=== PATIENT | female | born 1995 | race African-American/Black ===

== ENCOUNTER 2017-07-07 00:25 | Emergency (ER) | payer OTHER ==
[2017-07-07 00:42] VITALS: BP 111/82
[2017-07-07] MEDS ORDERED: predniSONE TAB* 20 MG PO ONE (01:25)
--- NOTE | 2017-07-07 04:37 | ED ---
James Burris Angela, scribed for Juan Zimmerman MD on 07/07/17 at 0117 . Allergic Reaction/Systemic - HPI Summary HPI Summary: This pt is a 21 y/o female presenting to [facility] c/o hives that began 07/06/17 at 22:00. Pt reports she broke out in hives and had difficulty breathing at approx 22:00 last night. She notes that this is the 7th night in a row that this has happened. Pt reports last night she left work at 18:30 and got home at 20:00. She went to bed and 2 hours later she broke out in hives. She took Benadryl with relief of hives, her last dose was at 22:30 on 07/06/17. Pt did not shower prior to going to bed. Denies using new soaps or detergents. 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 She has been working for 3 weeks at [employer]. PMHx: asthma. Pt has an epi pen for peanut allergy. Her PCP is Dr. Oh. - History of Current Complaint Chief Complaint: EDAllergicReaction Time Seen by Provider: 07/07/17 01:11 Hx Obtained From: Patient Hx Last Menstrual Period: 2 WEEKS AGO Onset/Duration: Sudden Onset, Started hours ago, Resolved Timing: Lasting Hours Severity Currently: None Pain Intensity: 0 Pain Scale Used: 0-10 Numeric Location: Diffuse Character: Hives Aggravating Factor(s): Nothing Alleviating Factor(s): OTC Meds - Benadryl Associated Signs And Symptoms: Positive: Difficulty Breathing, Rash. Negative: Throat Tightening - Allergies/Home Medications Allergies/Adverse Reactions: Allergies Allergy/AdvReac Type Severity Reaction Status Date / Time nut - unspecified Allergy Hives Verified 07/07/17 01:09 SHRIMP Allergy Severe Anaphylatic Uncoded 07/07/17 01:09 Shock PMH/Surg Hx/FS Hx/Imm Hx Respiratory History: Reports: Hx Asthma - EXERCISE-INDUCED Neurological History: Denies: Hx Seizures Infectious Disease History: No Infectious Disease History: Denies: Traveled Outside the [place] in Last 30 Days - Family History Known Family History: Positive: Hypertension, Diabetes - Social History Alcohol Use: None Substance Use Type: Reports: None Smoking Status (MU): Never Smoked Tobacco Review of Systems Negative: Fever Eyes: Negative ENT: Negative Positive: Shortness Of Breath - now resolved Genitourinary: Negative Positive: Rash - hives - now resolved Neurological: Negative All Other Systems Reviewed And Are Negative: Yes Physical Exam - Summary Physical Exam Summary: Appearance: Well appearing, no pain distress Skin: warm, dry, reflects adequate perfusion. No rash. Head/face: normal Eyes: EOMI, HAVEN. No redness in the eyes. ENT: normal. Throat is clear. No oral lesions. No lip swelling. Neck: supple, non-tender Respiratory: CTA, breath sounds present Cardiovascular: RRR, pulses symmetrical Abdomen: non-tender, soft Bowel: present Musculoskeletal: normal, strength/ROM intact Neuro: normal, sensory motor intact, A&Ox3 Triage Information Reviewed: Yes Vital Signs On Initial Exam: Initial Vitals Temp Pulse Resp BP Pulse Ox 97.5 F 86 16 111/82 99 07/07/17 00:35 07/07/17 00:35 07/07/17 00:35 07/07/17 00:35 07/07/17 00:35 Vital Signs Reviewed: Yes Diagnostics - Vital Signs Vital Signs Temp Pulse Resp BP Pulse Ox 07/07/17 00:35 97.5 F 86 16 111/82 99 - Laboratory Lab Statement: Any lab studies that have been ordered have been reviewed, and results considered in the medical decision making process. Allergic Reaction Course/Dx - Course Course Of Treatment: Patient with a known history of allergy to peanuts with hives each night for the last week after working with peanuts all day in the [employer] at [employer]. She has not had any more serious allergy. Treated with steroids here. 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 She is also given prescription for steroid and Pepcid. - Diagnoses Provider Diagnoses: Peanut allergy, Hives Discharge - Sign-Out/Discharge Documenting (check all that apply): Discharge/Admit/Transfer - Discharge - Discharge Plan Condition: Improved Disposition: HOME Prescriptions: Famotidine TAB* [Pepcid 20 MG TAB*] 20 mg PO BID PRN #20 tab PRN Reason: allergies/hives predniSONE TAB* [Deltasone TAB*] 50 mg PO DAILY #3 tab Patient Education Materials: Peanut Allergy (ED) Forms: *Work Release Referrals: Romie Oh MD [Primary Care Provider] - Additional Instructions: Avoid peanut and dust related to peanuts at all cost. Carry her EpiPen with you in places that may have peanuts. Return with serious symptoms, difficulty breathing, worse or other concerns as discussed. Consider additional allergy testing or desensitization therapy that may be ordered by your doctor or the furnace combustion analyst. - Billing Disposition and Condition Condition: IMPROVED Disposition: HOME The documentation as recorded by the James guerra Angela accurately reflects the service I personally performed and the decisions made by , Juan Zimmerman MD.
== END 2017-07-07 01:45 | disposition home or self-care (01) ==
LOC: ED 00:25
DX: L50.9 Urticaria, unspecified (principal); Z91.010 Allergy to peanuts
CPT/HCPCS: 99282; J7512